=== PATIENT | male | born 1970 | race Caucasian/White ===

== ENCOUNTER 2017-08-21 13:21 | Emergency (ER) | payer OTHER ==
[2017-08-21] MEDS ORDERED: ASPIRIN 81 MG CHEWABLE TAB PO ONE (13:33)
[2017-08-21] MEDS ORDERED: NS 1,000 ML IV ONE (13:33)
[2017-08-21] MEDS ORDERED: MAG HYDROX/AL HYDROX/SIMETH 30 ML UDCUP PO ONE (13:45)
[2017-08-21] MEDS ORDERED: HYOSCYAMINE SULFATE 0.125 MG TAB PO ONE (13:45)
[2017-08-21] MEDS ORDERED: LIDOCAINE 2% VISCOUS 15 ML UDCUP PO ONE (13:45)
--- NOTE | 2017-08-21 13:45 | EDPHY ---
H & P Stated Complaint: Sent by PCP, left sided chest tension since this AM. HPI/ROS: HPI CHIEF COMPLAINT: Left-sided chest discomfort HISTORY OF PRESENT ILLNESS: Patient is us healthy 47-year-old male, he does have a history of testicular cancer remotely, with no current active disease or metastatic disease, he has no cardiovascular history and does not have significant family history of cardiovascular disease he presents to the emergency room with left-sided 2/10 discomfort in his left chest that he describes is somewhat of a squeezing sensation/achy. It does not go anywhere. He denies shortness of breath, denies pleuritic pain, denies jaw neck, arm pain ,denies numbness or tingling or focal weakness. States started at 8:00 a.m. It waxes and wanes throughout the day, also states his BP was high for him. He does state on a recent run his heart rate was abnormally high. So right bundle- branch block rate of 49. He has never had this before. Denies recent illness. Denies recent travel. No pleuritic pain. Past Medical History: Testicular cancer, skin cancer Past Surgical History: Testicular surgery due to testicular cancer Social History: Denies daily use of drugs alcohol tobacco. Works at [employer] Family History: Denies significant family cardiovascular history or risk factors. ROS REVIEW OF SYSTEMS: A comprehensive 10 point review of systems is otherwise negative aside from elements mentioned in the history of present illness. Exam Constitutional appears well nontoxic no acute distress, triage nursing summary reviewed, vital signs reviewed, awake/alert. Eyes normal conjunctivae and sclera, EOMI, PERRLA. HENT normal inspection, atraumatic, moist mucus membranes, no epistaxis, neck supple/ no meningismus, no raccoon eyes. Respiratory clear to auscultation bilaterally, normal breath sounds, no respiratory distress, no wheezing. Cardiovascular rate normal, regular rhythm, no murmur, no edema, distal pulses normal. Gastrointestinal soft, non-tender, no rebound, no guarding, normal bowel sounds, no distension, no pulsatile mass. Genitourinary no CVA tenderness. Musculoskeletal no midline vertebral tenderness, full range of motion, no calf swelling, no tenderness of extremities, no meningismus, good pulses, neurovascularly intact. Skin slight erythematous rash around his neck blanches, pink, warm, & dry, no rash, skin atraumatic. Neurologic awake, alert and oriented x 3, AAOx3, moves all 4 extremities equally, motor intact, sensory intact, CN II-XII intact, normal cerebellar, normal vision, normal speech. Psychiatric normal mood/affect. Heme/Lymph/Immune no lymphadenopathy. Differential diagnosis includes but is not limited to: ACS, atypical chest pain , pneumothorax, pneumonia, pulmonary embolism, aortic dissection, congestive heart failure, tumor, musculoskeletal pain, esophageal pain, GERD, peptic ulcer disease, pancreatitis Medical Decision Making: Plan for this patient IV establishment full air sampling and monitoring, check EKG, troponin, chest x-ray, D-dimer, BNP full-dose aspirin, and re-evaluate. A GI cocktail to see if this improves his discomfort. Re-evaluation: EKG interpretation by me on record in [email or web address] system. Impression time of EKG 1348 this is sinus bradycardia right bundle-branch block present without acute ischemic change appreciated. No old EKG to compare this to. EKG interpretation by me on record in [email or web address] system. Impression this is a repeat EKG 4 hr later time of EKG 1734 this is sinus Tony clear right bundle- branch block present again with no acute ischemic change appreciated. Patient's initial troponin D-dimer negative. Chest x-ray unremarkable The patient did receive aspirin and a GI cocktail his chest discomfort is completely gone. Given his risk factors he has very low risk chest pain. No significant risk factors. His workup here in the emergency room is been rather unremarkable and he has been resting comfortably. Plan for this patient he has repeat troponin repeat EKG that are negative will allow him to go home with Cardiology outpatient stress test follow-up. Additionally I did give him return precautions he understands return to the emergency room if develops worsening chest pain shortness of breath fever vomiting. Patient is agreeable for this. 182: Spent extensive time with this patient. He has no chest pain has been resting comfortably here piece been here for 5 hr. Patient's troponins are negative x2. Essentially he has had 9 hr since initial chest pain. With 2-troponins 2 nonischemic EKGs I feel comfortable allowing patient go home. He is chest pain-free. His EKG does show right bundle branch block x2 but stable. No old EKG to compare this to. 184: Spoke with Dr. Merrill Patterson about this patient and case. He will be glad to see him in clinic. And have an outpatient nuclear stress test given the right bundle-branch block is requesting the patient gets a nuclear stress test. The patient is to call them tomorrow to set this up. Source: Patient, Family - Personal History Current Tetanus Diphtheria and Acellular Pertussis (TDAP): Unsure - Medical/Surgical History Hx Asthma: No Hx Chronic Respiratory Disease: No Hx Diabetes: No Hx Cardiac Disease: No Hx Renal Disease: No Hx Cirrhosis: No Hx Alcoholism: No Hx HIV/AIDS: No Hx Splenectomy or Spleen Trauma: No Other PMH: Testicular cancer. - Social History Smoking Status: Never smoked Constitutional: Initial Vital Signs Temperature (C) 36.6 C 08/21/17 13:21 Heart Rate 60 08/21/17 13:21 Respiratory Rate 16 08/21/17 13:21 Blood Pressure 167/97 H 08/21/17 13:21 O2 Sat (%) 98 08/21/17 13:21 O2 Delivery Mode Room Air Allergies/Adverse Reactions: No Known Allergies Allergy (Unverified 08/21/17 13:26) Home Medications: Medication Instructions Recorded NK [No Known Home Meds] 08/21/17 Medical Decision Making - Diagnostics Imaging Results: Imaging Impressions Chest X-Ray 08/21/17 13:34 Impression: Negative portable chest. - Data Points Laboratory Results: Laboratory Results 08/21/17 13:40 08/21/17 13:40 08/21/17 08/21/17 08/21/17 17:35 13:40 13:40 WBC RBC Hgb Hct MCV MCH MCHC RDW Plt Count MPV Neut % (Auto) Lymph % (Auto) [place] % (Auto) Eos % (Auto) Baso % (Auto) Nucleat RBC Rel Count Absolute Neuts (auto) Absolute Lymphs (auto) Absolute Monos (auto) Absolute Eos (auto) Absolute Basos (auto) Absolute Nucleated RBC Immature Gran % Immature Gran # PT 14.2 SEC SEC (12.0-15.0) INR 1.08 (0.83-1.16) APTT 30.6 SEC SEC (23.0-38.0) D-Dimer < 0.27 ug/mLFEU ug/mLFEU (0.00-0.50) Sodium 141 mEq/L mEq/L (135-145) Potassium 4.1 mEq/L mEq/L (3.5-5.2) Chloride 102 mEq/L mEq/L (97-110) Carbon Dioxide 26 mEq/l mEq/l (22-31) Anion Gap 13 mEq/L mEq/L (8-16) BUN 16 mg/dL mg/dL (7-23) Creatinine 1.0 mg/dL mg/dL (0.7-1.3) Estimated GFR > 60 Glucose 97 mg/dL mg/dL (70-100) Calcium 9.3 mg/dL mg/dL (8.5-10.4) Magnesium 2.0 mg/dL mg/dL (1.6-2.3) Total Bilirubin 0.7 mg/dL mg/dL (0.1-1.4) Conjugated Bilirubin 0.2 mg/dL mg/dL (0.0-0.5) Unconjugated Bilirubin 0.5 mg/dL mg/dL (0.0-1.1) AST 33 IU/L IU/L (17-59) ALT 47 IU/L IU/L (21-72) Alkaline Phosphatase 91 IU/L IU/L (38-126) Creatine Kinase 303 IU/L H IU/L (0-224) CK-MB (CK-2) Fraction 2.99 ng/mL ng/mL (0.00-3.19) CK-MB (CK-2) % 1.0 % % (0.0-4.0) Creatine Kinase Interp NEGATIVE (NEGATIVE) Troponin I < 0.012 ng/mL ng/mL < 0.012 ng/mL ng/mL (0.000-0.034) (0.000-0.034) NT-Pro-B Natriuret Pep 85 pg/mL pg/mL (0-125) Total Protein 7.3 g/dL g/dL (6.3-8.2) Albumin 4.4 g/dL g/dL (3.5-5.0) Lipase 295 IU/L IU/L (23-300) 08/21/17 13:40 WBC 5.50 10^3/uL 10^3/uL (3.80-9.50) RBC 5.12 10^6/uL 10^6/uL (4.40-6.38) Hgb 15.8 g/dL g/dL (13.7-17.5) Hct 45.8 % % (40.0-51.0) MCV 89.5 fL fL (81.5-99.8) MCH 30.9 pg pg (27.9-34.1) MCHC 34.5 g/dL g/dL (32.4-36.7) RDW 12.5 % % (11.5-15.2) Plt Count 166 10^3/uL 10^3/uL (150-400) MPV 10.2 fL fL (8.7-11.7) Neut % (Auto) 67.2 % % (39.3-74.2) Lymph % (Auto) 22.0 % % (15.0-45.0) [place] % (Auto) 8.5 % % (4.5-13.0) Eos % (Auto) 1.6 % % (0.6-7.6) Baso % (Auto) 0.5 % % (0.3-1.7) Nucleat RBC Rel Count 0.0 % % (0.0-0.2) Absolute Neuts (auto) 3.69 10^3/uL 10^3/uL (1.70-6.50) Absolute Lymphs (auto) 1.21 10^3/uL 10^3/uL (1.00-3.00) Absolute Monos (auto) 0.47 10^3/uL 10^3/uL (0.30-0.80) Absolute Eos (auto) 0.09 10^3/uL 10^3/uL (0.03-0.40) Absolute Basos (auto) 0.03 10^3/uL 10^3/uL (0.02-0.10) Absolute Nucleated RBC 0.00 10^3/uL 10^3/uL (0-0.01) Immature Gran % 0.2 % % (0.0-1.1) Immature Gran # 0.01 10^3/uL 10^3/uL (0.00-0.10) PT INR APTT D-Dimer Sodium Potassium Chloride Carbon Dioxide Anion Gap BUN Creatinine Estimated GFR Glucose Calcium Magnesium Total Bilirubin Conjugated Bilirubin Unconjugated Bilirubin AST ALT Alkaline Phosphatase Creatine Kinase CK-MB (CK-2) Fraction CK-MB (CK-2) % Creatine Kinase Interp Troponin I NT-Pro-B Natriuret Pep Total Protein Albumin Lipase Medications Given: Discontinued Medications Al Hydroxide/Mg Hydroxide (Maalox Susp) 30 ml PO ONCE ONE Stop: 08/21/17 13:46 Last Admin: 08/21/17 14:15 Dose: 30 ml Aspirin (Aspirin) 324 mg PO EDNOW ONE Stop: 08/21/17 13:34 Last Admin: 08/21/17 13:47 Dose: 324 mg Hyoscyamine Sulfate (Levsin, Hyomax-Sl) 0.25 mg PO ONCE ONE Stop: 08/21/17 13:46 Last Admin: 08/21/17 14:15 Dose: 0.25 mg Sodium Chloride (Ns) 1,000 mls @ 0 mls/hr IV EDNOW ONE; Wide Open PRN Reason: Protocol Stop: 08/21/17 13:34 Last Admin: 08/21/17 13:47 Dose: 1,000 mls Lidocaine (Lidocaine 2% Viscous) 15 ml PO ONCE ONE Stop: 08/21/17 13:46 Last Admin: 08/21/17 14:15 Dose: 15 ml Departure - Departure Disposition: Home, Routine, Self-Care Clinical Impression: Chest pain Qualifiers: Chest pain type: unspecified Qualified Code(s): R07.9 - Chest pain, unspecified Condition: Good Instructions: Chest Pain (ED) Additional Instructions: 1. If you develops worsening chest pain shortness of breath return immediately to the emergency room. 2. I do recommend he follow up with Cardiology this week for an outpatient evaluation and stress test. 3. Return to the ER for worsening symptoms questions or concerns. 4. Your to call Cardiology tomorrow 1st thing in the morning to make a follow- up appointment. 5. Your to ask for nuclear stress test. 6. Your to ask for 1st available slot this is at the request of Dr. Merrill Patterson. 7. If you have any problems questions or concerns please contact the emergency room. Referrals: KRISTINA VEE [Primary Care Provider] - As per Instructions Merrill Patterson MD [Medical Doctor] - As per Instructions
[2017-08-21 13:50] LABS: PLATELET COUNT 166 10^3/uL (150-400)
--- NOTE | 2017-08-21 13:50 | CPEKG ---
Heart Rate: 49 RR Interval: 1224 P-R Interval: 140 QRSD Interval: 148 QT Interval: 476 QTC Interval: 430 P Dixon: 22 QRS Dixon: 29 T Wave Dixon: 13 EKG Severity - ABNORMAL ECG - EKG Impression: SINUS BRADYCARDIA EKG Impression: RIGHT BUNDLE BRANCH BLOCK Electronically Signed By: Seth Gonzales 21-Aug-2017 20:06:33
[2017-08-21 14:03] LABS: INR 1.08 (0.83-1.16); PROTIME(PATIENT) 14.2 SEC (12.0-15.0)
[2017-08-21 15:28] LABS: CREATINE KINASE 303 IU/L (0-224)
--- NOTE | 2017-08-21 17:36 | CPEKG ---
Heart Rate: 45 RR Interval: 1333 P-R Interval: 156 QRSD Interval: 138 QT Interval: 472 QTC Interval: 409 P Romney: 31 QRS Romney: 26 T Wave Romney: 12 EKG Severity - ABNORMAL ECG - EKG Impression: SINUS BRADYCARDIA EKG Impression: RIGHT BUNDLE BRANCH BLOCK Electronically Signed By: Seth Gonzales 21-Aug-2017 20:06:33
[2017-08-21 18:56] VITALS: BP 155/91; PULSE 53; RESP 16; TEMP 98.4; O2SAT 97
== END 2017-08-21 18:53 | disposition home or self-care (01) ==
DX: R07.9 Chest pain, unspecified (principal); E86.9 Volume depletion, unspecified; Z85.47 Personal history of malignant neoplasm of testis; Z85.828 Personal history of other malignant neoplasm of skin